=== PATIENT | male | born 1945 | race Caucasian/White ===

== ENCOUNTER 2020-11-05 11:24 | Emergency (ER) | payer OTHER, BC ==
[~2020-11-05] VITALS: Ht 177.8 cm; Wt 80.5 kg
[2020-11-05 11:30] VITALS: BP 166/91
[2020-11-05] MEDS ORDERED: ORPHENADRINE CITRATE 60 MG/2 ML VIAL. IM ONE (12:00)
[2020-11-05] MEDS ORDERED: fentaNYL PF VIAL 100 MCG/2 ML VIAL IM ONE (12:00)
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
[2020-11-05] MEDS ORDERED: HYDROcodone/APAP 5/325MG 1 TAB TABLET PO ONE (13:00)
[2020-11-05] MEDS ORDERED: CYCLOBENZAPRINE 10 MG TABLET. PO ONE (13:00)
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
[2020-11-05] MEDS ORDERED: ACET1TAB33 PO ×2 (13:34→13:35)
[2020-11-05] MEDS ORDERED: TAMS0.4C97 PO ×2 (13:35→13:51)
== END 2020-11-05 14:11 | disposition home or self-care (01) ==
LOC: ER 11:24
DX: S16.1XXA Strain of muscle, fascia and tendon at neck level, initial encounter (principal); S39.012A Strain of muscle, fascia and tendon of lower back, initial encounter; R51.9 Headache, unspecified; J44.9 Chronic obstructive pulmonary disease, unspecified; E78.00 Pure hypercholesterolemia, unspecified; I10 Essential (primary) hypertension; I25.2 Old myocardial infarction; F17.200 Nicotine dependence, unspecified, uncomplicated; Z95.0 Presence of cardiac pacemaker; Z91.041 Radiographic dye allergy status; V49.49XA Driver injured in collision with other motor vehicles in traffic accident, initial encounter; Y93.89 Activity, other specified; Y92.488 Other paved roadways as the place of occurrence of the external cause; Y99.8 Other external cause status
CPT/HCPCS: 70450; 72125; 72131; 99285-25